=== PATIENT | female | born 1980 | race Caucasian/White ===

== ENCOUNTER → 2020-11-01 08:33 | Outpatient (CLI) | payer BC, SELFPAY ==
--- NOTE | ~2020-11-01 | MR_ITS ---
EXAMINATION: MR brain/brain stem wo/w con DATE: 11/01/2020 09:50 INDICATION: Headache. TECHNIQUE: Magnetic resonance imaging (MRI) of the brain and brainstem was performed without and with 12 mL MultiHance intravenous contrast. Sequences included sagittal and axial T1-weighted FSE, axial diffusion-weighted FS EPI, axial T2*-weighted GRE, axial T2-weighted FLAIR Propeller, and axial T2-we ighted Propeller. Postcontrast sequences included axial and coronal T1-weighted FSE. Apparent diffusi on coefficient (ADC) maps were created. COMPARISON: None. FINDINGS: There is no intracranial hemorrhage, acute infarction, or abnormal intracranial mass lesion . The ventricles are normal in size. The paranasal sinuses are clear. The orbits are normal. The mast oid air cells are normal. IMPRESSION: 1. Normal brain. Reviewed, dictated and finalized at location A. IMPRESSION: 1. Normal brain.
[2020-11-01 09:01] LABS: Estimated Glomerular Filt Rate > 60
== END ==
PROVIDERS: PCP Family Medicine; Visit Provider Physician Assistant Medical
DX: G44.52 New daily persistent headache (NDPH) (principal)
CPT/HCPCS: 70553; A9577

== ENCOUNTER → 2022-02-04 13:00 | Outpatient (CLI) | payer BC, SELFPAY ==
--- NOTE | ~2022-02-04 | US_ITS ---
US renal BI 02/04/2022 13:21 Procedure: Realtime transabdominal ultrasound of the kidneys and bladder. Indication: Renal hypoplasia. Frequency with urgency. Comparison: No prior studies for comparison. Findings: Renal echotexture is normal bilaterally without hydronephrosis, contour deforming mass or r enal calculus. The right kidney measures 14.2 cm and left kidney measures 12 cm. There is severe left hydronephrosis. Consider UPJ obstruction. Bladder within normal limits. Impression: 1: Severe left hydronephrosis, possibly due to UPJ obstruction. Reviewed, dictated and finalized at location A. Impression: 1: Severe left hydronephrosis, possibly due to UPJ obstruction.
== END ==
PROVIDERS: PCP Family Medicine; Visit Provider Internal Medicine Nephrology
DX: Q60.3 Renal hypoplasia, unilateral (principal); N13.30 Unspecified hydronephrosis
CPT/HCPCS: 76775

== ENCOUNTER → 2022-04-24 07:50 | Outpatient (CLI) | payer BC, SELFPAY ==
--- NOTE | ~2022-04-24 | US_ITS ---
US renal BI 04/24/2022 08:17 Procedure: Realtime transabdominal ultrasound of the kidneys and bladder. Indication: UPJ obstruction. Comparison: Ultrasound dated 02/04/2022 Findings: Right renal echotexture is normal. There is severe hydronephrosis with dilation of the farhana l calyces. Underlying cyst not excluded. The right kidney measures 14.2 cm and left kidney measures 1 2 cm. Bladder within normal limits. Impression: 1: Severe right hydronephrosis with dilated renal calyces, consistent with UPJ obstruction. Reviewed, dictated and finalized at location A. 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
== END ==
PROVIDERS: PCP Family Medicine; Visit Provider Urology
DX: N13.30 Unspecified hydronephrosis (principal)
CPT/HCPCS: 76775

== ENCOUNTER 2022-08-06 12:44 | Outpatient (CLI) | payer BC, SELFPAY ==
--- NOTE | ~2022-08-06 | NM_ITS ---
EXAMINATION: LUCA moseley renal scan DATE: 08/06/2022 14:15 INDICATION: Right hydronephrosis. TECHNIQUE: 7.7 mCi Tc-99m MAG3 was administered IV. 40 mg furosemide was administered IV immediately afterward. The patient was scanned in the supine position. A posterior abdominal radionuclide angiog russ was obtained. A subsequent time course of static images of the kidneys, ureters, and bladder was obtained. COMPARISON: Ultrasound kidneys 04/24/2022 FINDINGS: The posterior abdominal radionuclide angiogram and sequential static images show decreased size of the right kidney and right hydronephrosis. Peak renal parenchymal uptake was >>20 min in righ t kidney and 2 min in left kidney (normal peak 3-5 minutes). The relative early renal uptake was 25% on the right and 75% on the left (<40% is abnormal). No abnormalities of the ureters or bladder are seen. T1/2 for clearance of activity from the right kidney and proximal collecting system could not be lexi ured. T1/2 for clearance of activity from the left kidney and proximal collecting system was 9 minutes. IMPRESSION: 1. Decreased right kidney function, which is 25% of total renal function. The right hydronephrosis s uggests this finding is from fixed ureteral obstruction. Reviewed, dictated and finalized at location A. IMPRESSION: 1. Decreased right kidney function, which is 25% of total renal function. The right hydronephrosis suggests this finding is from fixed ureteral obstruction.
== END 2022-08-06 12:45 | disposition home or self-care (01) ==
PROVIDERS: PCP Family Medicine; Visit Provider Urology
DX: N13.5 Crossing vessel and stricture of ureter without hydronephrosis (principal)
CPT/HCPCS: 78708; A9562; J1940

== ENCOUNTER 2023-02-19 13:27 | Emergency (ER) | payer OTHER, SELFPAY ==
[2023-02-19 13:57] VITALS: BP 138/90; PULSE 84; RESP 16; TEMP 36.7; O2SAT 100
--- NOTE | 2023-02-19 14:30 | ED.GENADULT ---
HPI - General Adult General Chief complaint: Upper Respiratory Infection Stated complaint: Sinus infection Time Seen by Provider: 02/19/23 14:05 Source: patient, RN notes reviewed and old records reviewed Mode of arrival: ambulatory Limitations: no limitations History of Present Illness HPI narrative: Patient presents today with a 4 week history of nasal congestion and sinus pressure. Two weeks ago she was given a prescription for Augmentin via telemedicine. Four days ago she developed diarrhea and severe lower abdominal pain. She was subsequently seen by her PCP a few days ago labs were drawn and were normal. Patient has an appointment to see GI next week. Patient is concerned that she still has some congestion and cough symptoms. Related Data Home Medications Medication Instructions Recorded Confirmed No Home Medications 02/19/23 02/19/23 Allergies Allergy/AdvReac Type Severity Reaction Status Date / Time amoxicillin [From Augmentin] AdvReac Diarrhea Verified 02/19/23 13:56 clavulanic acid AdvReac Diarrhea Verified 02/19/23 13:56 [From Augmentin] Review of Systems Review of Systems: CONSTITUTIONAL: Denies body aches, fever, chills, or sweats. EYES: Denies visual changes, redness, or discharge. ENT: Denies rhinorrhea, sore throat, or otalgia.+ congestion, sinus pressure CARDIOVASCULAR: Denies chest pain, palpitations, or edema. RESPIRATORY: Denies dyspnea.+ cough GASTROINTESTINAL: Denies abdominal pain, nausea, vomiting.+ diarrhea GENITOURINARY: Denies dysuria or hematuria. SKIN: Denies rash, itching, or wounds. MUSCULOSKELETAL: Denies back pain, joint pain, or myalgia. NEUROLOGIC: Denies headache, numbness, tingling, or weakness. PSYCH: Denies depression or anxiety. [facility] Past Medical History Medical History BMI 21.0-21.9, adult Vitiligo Family History Family History Father Hypertension Mother Hypertension Grandparent Carcinoma of colon Social History Social History Smoking status: Never smoker Second hand tobacco smoke exposure: No Alcohol intake: current Substance use: never Substance use type: does not use Comments At time of signature, I have reviewed and agree with nursing past medical, surgical, social and family history unless otherwise noted. Please see nursing chart for further information. There is no relevant family history pertinent to the presenting complaint Exam Narrative: GENERAL: Well-appearing, well-nourished, and in no acute distress. HEAD: Normocephalic, atraumatic. EYES: EOMI. No redness or drainage. Conjunctivae normal. ENT: Mucous membranes pink and moist. Nares clear. No rhinorrhea. TMs normal bilaterally with mild bilateral serous effusions without evidence of bacterial infection. Throat normal with moderate amount of white postnasal drainage. Uvula midline. NECK: Normal AROM. Supple. No lymphadenopathy. CHEST: No respiratory distress. Clear to auscultation. HEART: Regular rate and rhythm. No murmur appreciated. Normal peripheral pulses. ABDOMEN: Soft, nontender, nondistended, normal active bowel sounds. EXTREMITIES: Normal range of motion. No edema. SKIN: Warm, dry, no rash. Capillary refill normal. Normal skin turgor. NEURO: No focal deficits. Alert and oriented x3. Gait steady. PSYCH: + anxious. Course Course Level of Care: Express Care Visit Vital Signs Vital signs: Vital Signs Temperature 98.1 F 02/19/23 13:57 Pulse Rate 84 02/19/23 13:57 Respiratory Rate 16 02/19/23 13:57 Blood Pressure 138/90 02/19/23 13:57 Pulse Oximetry 100 02/19/23 13:57 Temperature 98.1 F 02/19/23 13:57 Pulse Rate 84 02/19/23 13:57 Respiratory Rate 16 02/19/23 13:57 Blood Pressure 138/90 02/19/23 13:57 Pulse Oximetry 100
== END 2023-02-19 14:40 | disposition home or self-care (01) ==
PROVIDERS: Emergency Provider Nurse Practitioner; PCP Family Medicine
DX: R09.81 Nasal congestion (principal); R05.1 Acute cough
CPT/HCPCS: 99211; G0463

== ENCOUNTER 2023-03-05 12:16 | Outpatient (CLI) | payer OTHER, SELFPAY ==
[2023-03-12 23:51] LABS: Calprotectin, Stool 972 mcg/g; Pancreatic Elastase, Stool 467 mcg/g
== END 2023-03-05 12:17 | disposition home or self-care (01) ==
LOC: ANHLAB 12:17
PROVIDERS: PCP Family Medicine; Visit Provider Nurse Practitioner
DX: R19.7 Diarrhea, unspecified (principal)
CPT/HCPCS: 82653; 83993; 87045; 87269; 87427; 87449

== ENCOUNTER → 2023-06-25 14:37 | Outpatient (CLI) | payer OTHER, SELFPAY ==
--- NOTE | ~2023-06-25 | MM_ITS ---
EXAMINATION: MM screening estefany BI w gloria HISTORY: Screening TECHNIQUE: Craniocaudal and mediolateral oblique 3-D tomosynthesis images were obtained and synthetic 2-D images were generated. CAD analysis was submitted and interpreted. COMPARISON: No prior mammogram is available for comparison at this institution. BREAST PARENCHYMAL COMPOSITION: Dense: The breasts are extremely dense, which lowers the sensitivity of mammography. FINDINGS: There is no evidence of suspicious mass, calcification, or architectural distortion to sugg est malignancy in either breast. There has been no suspicious interval change. IMPRESSION: 1. No mammographic evidence of malignancy. 2. Recommend routine screening mammography in one year. BI-RADS Category 1: Negative Reviewed, dictated and finalized at location A. KLAYER PAVING BRICK
== END ==
PROVIDERS: PCP Obstetrics & Gynecology; Visit Provider Obstetrics & Gynecology
DX: Z12.31 Encounter for screening mammogram for malignant neoplasm of breast (principal)
CPT/HCPCS: 77063; 77067

== ENCOUNTER 2024-06-28 10:51 | Outpatient (CLI) | payer OTHER, SELFPAY ==
--- NOTE | ~2024-06-28 | MM_ITS ---
EXAMINATION: MM screening estefany BI w gloria HISTORY: Screening mammogram TECHNIQUE: Craniocaudal and mediolateral oblique 3-D tomosynthesis images were obtained and synthetic 2-D images were generated. CAD analysis was submitted and interpreted. COMPARISON: 06/25/2023 BREAST PARENCHYMAL COMPOSITION:Dense: The breasts are extremely dense, which lowers the sensitivity o f mammography. FINDINGS: No suspicious mass, calcification, or architectural distortion are identified in either avtar ast to suggest malignancy. There has been no suspicious interval change. IMPRESSION: No mammographic evidence of malignancy. Recommend routine screening mammography in one year. BI-RADS Category 1: Negative Reviewed, dictated and finalized at location . STITCH SHOULDER JOINER
== END 2024-06-28 10:52 | disposition home or self-care (01) ==
LOC: MICIMG 10:51
PROVIDERS: PCP Obstetrics & Gynecology; Visit Provider Obstetrics & Gynecology
DX: Z12.31 Encounter for screening mammogram for malignant neoplasm of breast (principal)
CPT/HCPCS: 77063; 77067

== ENCOUNTER 2024-12-16 18:13 | Emergency (ER) | payer OTHER, SELFPAY ==
[2024-12-16 18:36] VITALS: BP 146/89; PULSE 72; RESP 16; TEMP 36.9; O2SAT 100
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
== END 2024-12-16 19:10 | disposition home or self-care (01) ==
PROVIDERS: Emergency Provider Nurse Practitioner; PCP Nurse Practitioner Family
DX: S29.012A Strain of muscle and tendon of back wall of thorax, initial encounter (principal); V89.2XXA Person injured in unspecified motor-vehicle accident, traffic, initial encounter
CPT/HCPCS: 99213; G0463

== ENCOUNTER 2025-01-13 11:32 | Outpatient (CLI) | payer OTHER, SELFPAY ==
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
== END 2025-01-13 11:33 | disposition home or self-care (01) ==
PROVIDERS: PCP Nurse Practitioner Family; Visit Provider Nurse Practitioner Family
DX: R42 Dizziness and giddiness (principal); V89.2XXA Person injured in unspecified motor-vehicle accident, traffic, initial encounter; R51.9 Headache, unspecified
CPT/HCPCS: 70450